=== PATIENT | female | born 1975 | race Caucasian/White ===

== ENCOUNTER 2020-07-12 13:58 | Outpatient (CLI) | payer OTHER, SELFPAY ==
--- NOTE | ~2020-07-12 | XR_ITS ---
XR lumbar spine 2-3V DATE: 07/12/2020 14:34 INDICATION: Low back pain TECHNIQUE: AP, lateral, coned lateral lumbosacral views COMPARISON: None FINDINGS: There is severe degenerative disc disease at L5-S1. Lumbar interspaces are well preserved. No fracture or bone destruction or spondylolisthesis. The lumbar pedicles are intact. The sacroiliac joints appear normal. IMPRESSION: Severe degenerative disc disease at L5-S1 Reviewed, dictated and finalized at location A.
== END 2020-07-12 13:59 | disposition home or self-care (01) ==
LOC: CHSIMG 14:00
PROVIDERS: PCP Family Medicine; Visit Provider Family Medicine
DX: M54.5 Low back pain (principal)
CPT/HCPCS: 72100

== ENCOUNTER 2020-07-16 13:02 | Outpatient (RCR) | payer OTHER, SELFPAY ==
--- NOTE | 2020-07-16 13:51 | PTOPEVAL ---
Thank you for referring Sara Rodríguez to [facility].? The patient is scheduled to be seen for therapy? __3__x/week for 12 visits. Please review, sign, date and return this plan of care LISA. I agree with and certify that the following plan of care is medically necessary. Referring Physician Date Admitting Provider: Attending Provider: Bam Canela, MD Referring Provider: *PT Outpatient Evaluation Start: 07/16/20 13:01 Freq: Status: Active Protocol: Document 07/16/20 13:01 HOMERO (Rec: 07/16/20 13:51 HOMERO [email or web address]) Therapy Assessment Status Assessment Status Assessment Status Evaluation Outpatient Past Medical History Cardiovascular History Hx Hypertension Yes Musculoskeletal History Hx Back Pain Yes Evaluation Information Problem Diagnosis low back pain Onset 06/18/20 Subjective Information Pt. reports she has had on/off Query Text:As Reported By Patient/ back pain since 2011. She Family reports no recent incident, but recent pain increase. She describes pain across the low back and to the side. She reports that she will get occassional numbness in the area of the hips. 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 She states that standing, walking and bending increase her pain. She states that pain can be most severe in the morning. Pt. reports that her goal is to be able to stand longer with less pain. Diagnostic Tests X-Rays For This Problem Yes Prior Level of Function Comments Additional Prior Level of Function Pt. reports that she was able Comments to stand for longer periods prior to the past 3 months. She notes a decrease in her activity level as of recently. Pain Assessment Pain Scale Pain Scale Used Numeric (1 - 10) Self Report Pain Assessment Lower Back Reported Pain Level 4 Pain Description Pressure Pain Frequency Chronic,Continuous Lowest Pain Intensity 4 Greatest Pain Intensity 10 Pain Aggravating Factors Bending,Exercise/Activity, Lifting,Prolonged Position, Walking,Weight Bearing/ Standing Pain Score Pain Score
--- NOTE | 2020-08-07 14:08 | PCPTNOTE ---
08/07/20-pt called and cancelled stating she is not feeling well this date- HM.
--- NOTE | 2020-08-22 13:53 | PCPTNOTE ---
Mrs. Rodríguez attended a total of 9 treatment sessions. She has failed to return to the clinic and has not contacted the clinic. Refer to her last daily note for pt. discharge status. Thank you for the referral of this pt. Ian Brown, MPT
== END 2020-08-06 14:37 | disposition home or self-care (01) ==
LOC: CHSPT 13:02
PROVIDERS: PCP Family Medicine; Visit Provider Family Medicine
DX: M54.5 Low back pain (principal)
CPT/HCPCS: 97012; 97014; 97110; 97140; 97161; G0283

== ENCOUNTER 2020-08-01 08:05 | Outpatient (CLI) | payer OTHER, SELFPAY ==
--- NOTE | ~2020-08-01 | MR_ITS ---
EXAMINATION: MR lumbar spine [facility] EXAM DATE: 08/01/2020 09:10 INDICATION: Low back pain radiating down both legs. TECHNIQUE: Multi-sequential, multiplanar MR images of the lumbar spine were obtained without contrast . Sagittal T1, T2, T2 fat saturation images. Axial T2 weighted images. There is no prior study for comparison. FINDINGS: Paraspinal soft tissue is unremarkable. There is congenitally narrow L5-S1 disc space with some superimposed disc disease. There are subacute appearing compression fractures of L5 and S1 segme nts, fracture lines visualized but with only minimal loss of height at L5 detectable. The vertebral b delvis and disc heights are otherwise well maintained. The vertebral bodies are aligned in the AP dimens ion. The conus medullaris terminates at the L1 level and has normal signal intensity and morphology . Level by level evaluation: T12-L1: Disc does not extend beyond the endplate margin. Facet arthropathy: Minimal. Neural foraminal stenosis: No stenosis. Central canal stenosis: No stenosis. L1-L2: Disc does not extend beyond the endplate margin. Facet arthropathy: Minimal. Neural foraminal stenosis: No stenosis. Central canal stenosis: No stenosis. L2-L3: Disc does not extend beyond the endplate margin. Facet arthropathy: Minimal. Neural foraminal stenosis: No stenosis. Central canal stenosis: No stenosis. L3-L4: Disc does not extend beyond the endplate margin. Facet arthropathy: Minimal. Neural foraminal stenosis: No stenosis. Central canal stenosis: No stenosis. L4-L5: There is a minimal diffuse disc bulge. Facet arthropathy: Mild. Neural foraminal stenosis: Mild right. Central canal stenosis: No stenosis. L5-S1: There is a mild diffuse disc bulge. Facet arthropathy: Mild. Neural foraminal stenosis: Mild bilateral. Central canal stenosis: No stenosis. IMPRESSION: 1. L5-S1 subacute minimal compression fractures. 2. Mild lumbar spondylosis. Reviewed, dictated and finalized at location A. [employer]
== END 2020-08-01 08:06 | disposition home or self-care (01) ==
PROVIDERS: PCP Family Medicine; Visit Provider Family Medicine
DX: M54.5 Low back pain (principal); R51.9 Headache, unspecified
CPT/HCPCS: 72148

== ENCOUNTER 2020-09-19 09:56 | Outpatient (RCR) | payer OTHER, SELFPAY ==
--- NOTE | 2020-09-19 11:26 | PTOPEVAL ---
Thank you for referring Sara Rodríguez to [facility].? The patient is scheduled to be seen for therapy? __3__x/week for 12 visits. Please review, sign, date and return this plan of care LISA. I agree with and certify that the following plan of care is medically necessary. Referring Physician Date Admitting Provider: Attending Provider: Bam Canela, Referring Provider: *PT Outpatient Evaluation Start: 09/19/20 09:49 Freq: Status: Active Protocol: Document 09/19/20 09:50 HOMERO (Rec: 09/19/20 11:25 HOMERO [email or web address]) Therapy Assessment Status Assessment Status Assessment Status Evaluation Outpatient Past Medical History Cardiovascular History Hx Hypertension Yes Musculoskeletal History Hx Back Pain Yes Evaluation Information Problem Diagnosis low back pain Onset 06/19/20 Subjective Information Pt. reports she was Query Text:As Reported By Patient/ participating in therapy 1-2 Family months ago. She reports she had to undergo wrist surgery to remove a cyst and was unable to return. She report she has recovered from surgery , but is still having back pain. 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 She states that pain is worst with standing one position, bending and twisting. She reports that her goal is to decrease her low back pain with work related duties. Prior Level of Function Comments Additional Prior Level of Function Pt. 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 She states that she continues to work but has severe pain by the end of the day. She reports that she is not very active at home due to her pain . Pain Assessment Timing of Pain Assessment Timing of Pain Assessment Pre-Treatment Pain Scale Pain Scale Used Numeric (1 - 10) Self Report Pain Assessment Lower Back Reported Pain Level 4 Pain Description Aching Pain Frequency Continuous Lowest Pain Intensity 4 Greatest Pain Intensity 8 Pain Aggravating Factors Bending,Exercis
== END 2020-10-22 14:36 | disposition home or self-care (01) ==
LOC: CHSPT 09:56
PROVIDERS: Visit Provider Family Medicine
DX: M54.5 Low back pain (principal)
CPT/HCPCS: 97014; 97110; 97140; 97161; G0283

== ENCOUNTER 2020-10-17 11:00 | Outpatient (CLI) | payer OTHER, SELFPAY ==
--- NOTE | ~2020-10-17 | MM_ITS ---
EXAMINATION: MM screening [facility] HISTORY: Baseline screening mammogram TECHNIQUE: Craniocaudal and mediolateral oblique 3-D tomosynthesis images were obtained and synthetic 2-D images were generated. CAD analysis was submitted and interpreted. COMPARISON: None, baseline BREAST PARENCHYMAL COMPOSITION: The breasts are heterogeneously dense, which may obscure small masses . FINDINGS: RIGHT BREAST: An asymmetry is present in the middle third of the lower breast on the mediolateral obl ique view. LEFT BREAST: There is a possible mass in the middle third of the upper outer quadrant of the breast. IMPRESSION: 1. Bilateral breast findings as described above. 2. Additional mammographic views and possible breast ultrasound are recommended to evaluate for malig matheus and establish a baseline given that this is the first mammographic examination. BI-RADS Category 0: Incomplete: Needs additional imaging evaluation. Reviewed, dictated and finalized at location A. DER LABORER IMPRESSION: 1. Bilateral breast findings as described above. 2. Additional mammographic views and possible breast ultrasound are recommended to evaluate for malignancy and establish a baseline given that this is the fir st mammographic examination. BI-RADS Category 0: Incomplete: Needs additional imaging evaluation.
--- NOTE | ~2020-10-17 | DEXA_ITS ---
Bone Density Report Name: Sara Rodríguez Age: 45 Sex: Female Ethnicity: White Date of : 1975 Indication: parental hip fracture; prior fracture; Referring Provider: RolaBam Study: Bone densitometry was performed. Exam Date: October 17, 2020 Accession number: [id number] Bone Density: Region BMD T-score Z-score Classification AP Spine(L1-L4) 0.845 -1.8 -1.4 Osteopenia Femoral Neck (Left) 0.585 -2.4 -2.0 Osteopenia Total Hip (Left) 0.749 -1.6 -1.3 Osteopenia Femoral Neck (Right) 0.615 -2.1 -1.7 Osteopenia Total Hip (Right) 0.801 -1.2 -0.9 Osteopenia Femoral Neck Mean 0.600 -2.2 -1.9 Osteopenia Total Hip Mean 0.775 -1.4 -1.1 Osteopenia World Health Organization criteria for BMD impression classify patients as: Normal (T-score at or above -1.0), Osteopenia (T-score between -1.0 and -2.5), or Osteoporosis (T-score at or below -2.5). 10-year Fracture Risk: FRAX not reported because: Premenopausal woman Prior hip or vertebral fracture Clinical Information Provided by Patient: Have had a previous hip or vertebral fracture Has had a low trauma fracture Parent has had a hip fracture Smokes Patient maximum height was 64 No regular weight bearing exercise Does not regularly consume dairy products Drinks caffeinated beverages Onset of menses at age 13 Premenopausal Number of children 0 Impression: The patient's bone mass is below expected range for age, gender and ethnicity based on the Left Femoral Neck Z-score. The patient has risk factors, including: parental hip fracture, smoking, previous fracture. Discussion: BONE DENSITY IS ABNORMALLY LOW FOR AGE, SEX, AND RACE. HISTORY OF FRACTURE. This patient's lowest Z-score is -2.0 or more below average for age, sex, and race at one or more sites. This may be due to low peak bone mass or to excessive bone loss. There may be some underlying disease or condition contributing to reduced bone mass. Further evaluation should be strongly considered, especially given the patient's history of fracture at a young age. Although there is a predictable association between low bone mass and the risk of osteoporotic fractures in untreated postmenopausal women, there are no data relating bone density and fracture risk in younger women. The ISCD position is that the diagnosis of ?low bone mass? or ?osteoporosis? should not be made on densitometric criteria alone. WHO criteria only apply to postmenopausal women. Although pharmacologic therapy is sometimes indicated for patients with Z-scores in this range, there is little information available. A decision to treat should be based on a thorough consideration of benefits and risks. The patient should follow a healthful lifestyle (good nutrition with adequate calcium and vitamin D, and appropriate weig
== END 2020-10-17 11:01 | disposition home or self-care (01) ==
LOC: CHSIMG 11:02
PROVIDERS: PCP Family Medicine; Visit Provider Family Medicine
DX: Z12.31 Encounter for screening mammogram for malignant neoplasm of breast (principal); M81.0 Age-related osteoporosis without current pathological fracture
CPT/HCPCS: 77063; 77067; 77080

== ENCOUNTER 2020-11-09 09:58 | Outpatient (CLI) | payer OTHER, SELFPAY ==
--- NOTE | ~2020-11-09 | MMUS_ITS ---
EXAMINATION: MM diagnostic [facility], US breast LT limited HISTORY: Abnormal baseline screening mammogram TECHNIQUE: Additional 3-D tomosynthesis images of the breasts were performed and synthetic 2-D images were generated. CAD analysis was submitted and interpreted. High resolution limited left breast ultr asound was performed. COMPARISON: 10/17/2020 FINDINGS: MAMMOGRAPHIC FINDINGS: Left breast: There is a persistent focal asymmetry in the posterior third of the upper outer quadrant of the breast. No suspicious calcification or architectural distortion is identified. Right breast: No persistent asymmetry is identified with spot compression of the right breast. ULTRASOUND: There is no evidence of focal abnormal solid or cystic lesion in the vicinity of the of the left theron st. There are multiple cysts in the upper outer quadrant and subareolar aspect of the breasts. The la rgest measures 8 mm. IMPRESSION: 1. Probably benign focal asymmetry of the left breast. 2. Recommend 6 month follow-up left diagnostic mammogram and possible ultrasound. BI-RADS category 3, probably benign findings. Reviewed, dictated and finalized at location A. [place] IMPRESSION: 1. Probably benign focal asymmetry of the left breast. 2. Recommend 6 month follow-up left diagnostic mammogram and possible ultrasoun d. BI-RADS category 3, probably benign findings.
== END 2020-11-09 09:59 | disposition home or self-care (01) ==
LOC: CHSIMG 09:59
PROVIDERS: PCP Family Medicine; Visit Provider Family Medicine
DX: R92.8 Other abnormal and inconclusive findings on diagnostic imaging of breast (principal)
CPT/HCPCS: 76642; 77062; 77066; G0279

== ENCOUNTER 2020-11-26 17:39 | Outpatient (CLI) | payer OTHER, SELFPAY ==
[2020-11-26 18:29] LABS: SARS-CoV-2 Ag Negative (Negative)
== END 2020-11-26 17:40 | disposition home or self-care (01) ==
LOC: CHSLAB 17:44
PROVIDERS: PCP Family Medicine; Visit Provider Family Medicine
DX: J02.9 Acute pharyngitis, unspecified (principal); Z20.822 Contact with and (suspected) exposure to COVID-19
CPT/HCPCS: 87081; 87426; 87880; C9803

== ENCOUNTER 2022-01-28 21:38 | Emergency (ER) | payer OTHER, SELFPAY ==
[2022-01-28 21:49] VITALS: BP 183/103; PULSE 98; RESP 22; TEMP 36.6; O2SAT 98
--- NOTE | 2022-01-28 21:54 | ED.DENTAL ---
HPI - Dental/Oral General Chief complaint: Unspecified Stated complaint: filling fell out of tooth Time Seen by Provider: 01/28/22 21:53 Source: patient and RN notes reviewed Mode of arrival: ambulatory Limitations: no limitations History of Present Illness HPI Narrative: patient states a filling fell out about 2 weeks ago and then started hurting tonight. Complaint: tooth pain Location: Tooth # (30) Onset (ago): minute(s) (30) Duration: constant Severity: moderate Relieving factors: nothing Exacerbating factors: chewing and cold Treatment prior to arrival: none Related Data Home Medications Medication Instructions Recorded Confirmed gabapentin 400 mg PO TID 01/28/22 01/28/22 Allergies Allergy/AdvReac Type Severity Reaction Status Date / Time No Known Allergies Allergy Verified 01/28/22 21:52 Review of Systems Review of Systems: All systems reviewed & are unremarkable except as noted in HPI and below PMFSH Past Medical History Medical History (Updated 01/29/22 @ 00:00 by Edmond Narayan) Chronic back pain Surgical History Surgical History (Updated 01/28/22 @ 22:05 by Donny Phan MD) No pertinent past surgical history Exam Const: General: healthy appearing, no acute distress and alert Nutritional Appearance: well nourished Orientation/consciousness: patient oriented x3 Other: Female tech in room during examination. HENMT: Head: normal to inspection Ears: external ears normal Face and sinus: normal facial exam Mouth: Yes moist mucous membranes Teeth and gingiva: caries and poor dentition Teeth image: 1. Dental filling absent with broken tooth addition tender to palpation no fluctuation no gum swelling. 2. Dental filling absent with broken tooth addition tender to palpation no fluctuation no gum swelling. Throat: posterior oropharynx normal Eyes: Conjunctivae: conjunctivae normal Pupils: Equal, round and reactive pupils present EOM: EOMs intact bilaterally Neck: Neck: normal visual inspection and no lymphadenopathy Resp: Effort & Inspection: normal respiratory effort Auscultation: clear to auscultation bilaterally Cardio: Rate: regular rate Rhythm: regular rhythm GI: GI Palp: Yes Soft to palpation and No Tenderness to palpation present (GI) Auscultation: normal bowel sounds Back/Spine/Pelvis: Cervical Spine: cervical ROM normal Thoracic/Lumbar Spine: thoraco-lumbar ROM normal Skin: General skin exam: normal color Rashes: no rashes Neuro: General: patient oriented x3, moves all extremities, no focal motor deficits and CN's II-XI intact bilaterally Speech: normal speech Gait exam (Neuro): Normal gait present Extrem: General: normal to inspection and no clubbing, cyanosis or edema Psych: Appearance: grossly normal and well kempt Mental Status: mental status grossly normal Affect: normal affect Attitude: cooperative Thought content: Yes Normal thought content present Course Vital Signs Vital signs: Vital Signs Temperature 36.6 C 01/28/22 21:49 Pulse Rate 98 01/28/22 21:49 Respiratory Rate 22 H 01/28/22 21:49 Blood Pressure 183/103 H 01/28/22 21:49 Pulse Oximetry 98 01/28/22 21:49 Temperature 36.6 C 01/28/22 21:49 Pulse Rate 90 01/28/22 22:12 Respiratory Rate 18 01/28/22 22:12 Blood Pressure 183/99 H 01/28/22 22:12 Pulse Oximetry 97 01/28/22 22:12 Discharge Plan Discharge Clinical Impression: Pain due to dental caries Patient Disposition: Home, Self-Care Condition: Stable Instructions: Toothache (ED) Additional Instructions: see a dentist in the next 5-7 days. Get some [id number] dental wax and use that to cover the exposed tooth. Prescriptions: New tramadol 50 mg tablet 50 mg PO Q6H PRN (Reason: pain) Qty: 10 RF: 0 nabumetone 750 mg tablet 750 mg PO BID 10 Days Qty: 20 RF: 0 No Action gabapentin 400 mg capsule 400 mg PO TID RF: 0 Follow-up/Referrals: RolaSteffanie
[2022-01-28] MEDS: KETOROLAC (*BKC) 60 MG/2 ML VIAL IM (22:04)
[2022-01-28 22:12] VITALS: BP 183/99; PULSE 90; RESP 18; O2SAT 97
== END 2022-01-28 22:13 | disposition home or self-care (01) ==
PROVIDERS: Emergency Provider Emergency Medicine; PCP Family Medicine
DX: K08.89 Other specified disorders of teeth and supporting structures (principal); K02.9 Dental caries, unspecified
CPT/HCPCS: 96372; 99283; J1885

== ENCOUNTER 2022-02-06 22:10 | Emergency (ER) | payer OTHER, SELFPAY ==
[2022-02-06 22:14] VITALS: BP 157/105; PULSE 99; RESP 18; TEMP 36.2; O2SAT 98
--- NOTE | 2022-02-06 22:50 | ED.DENTAL ---
HPI - Dental/Oral General Chief complaint: Dental/Oral Stated complaint: tooth pain Source: patient Mode of arrival: ambulatory Limitations: no limitations History of Present Illness HPI Narrative: this is a 46-year-old female that presents with dental pain was started on antibiotics by her dentist and advised to continue her current antibiotics, does have severe tooth decay right lower premolar area of surrounding gum inflammation with no fever chills no nausea vomiting no shortness of breath. MD Complaint: tooth pain Teeth map: 1. Tooth decay with surrounding gum inflammation Onset (ago): day(s) Duration: constant Severity: moderate Severity scale (1-10): 6 Relieving factors: NSAIDs Exacerbating factors: chewing and cold Context: history of dental caries Associated symptoms: gum swelling Treatment prior to arrival: oral analgesic Related Data Home Medications Medication Instructions Recorded Confirmed gabapentin 400 mg capsule 400 mg PO TID 01/28/22 02/06/22 Allergies Allergy/AdvReac Type Severity Reaction Status Date / Time No Known Allergies Allergy Verified 02/06/22 22:39 Review of Systems Review of Systems: All systems reviewed & are unremarkable except as noted in HPI and below PMFSH Past Medical History Medical History Chronic back pain Surgical History Surgical History No pertinent past surgical history Exam Const: General: healthy appearing and no acute distress Nutritional Appearance: well nourished Limitations: no limitations HENMT: Head: normal to inspection Ears: external ears normal Other: Severe tooth decay with surrounding gum inflammation right lower premolar area Eyes: Conjunctivae: conjunctivae normal Pupils: Equal, round and reactive pupils present EOM: EOMs intact bilaterally Neck: Neck: normal visual inspection and no lymphadenopathy Chest: Chest palpation & inspection: normal inspection of the chest Resp: Effort & Inspection: normal respiratory effort Auscultation: clear to auscultation bilaterally Cardio: Rate: regular rate Rhythm: regular rhythm GI: Auscultation: normal bowel sounds Skin: General skin exam: normal color Wounds: no wounds Neuro: General: patient oriented x3, moves all extremities, no meningeal signs and no focal motor deficits Extrem: General: normal to inspection, no clubbing, cyanosis or edema and no pedal edema Psych: Mental Status: mental status grossly normal Course Course Emergency Course: patient received a dose of 60mg IM Toradol is currently taking antibiotics per her dentist, advised patient to continue current antibiotics. Critical Care Time Critical Care Time Critical Care Time: No Discharge Plan Discharge Clinical Impression: Toothache, Dental abscess, Dental caries Patient Disposition: Home, Self-Care Condition: Stable Instructions: Antibiotic Form, Dental Abscess (ED) Additional Instructions: Take medicine as prescribed and keep regular follow-up appointment with her your dentist. Prescriptions: New tramadol [Ultram] 50 mg tablet 50 mg PO Q6H PRN (Reason: pain) Qty: 20 0RF No Action gabapentin 400 mg capsule 400 mg PO TID Follow-up/Referrals: Rola,MD Bam [Primary Care Provider] - Stand Alone Forms: Work/School Release IP Time of Disposition: 22:55
[2022-02-06] MEDS: KETOROLAC (*BKC) 60 MG/2 ML VIAL IM (22:55)
[2022-02-06 23:19] VITALS: BP 135/90; PULSE 93; RESP 16; O2SAT 100
== END 2022-02-06 23:22 | disposition home or self-care (01) ==
PROVIDERS: Emergency Provider Emergency Medicine; PCP Family Medicine
DX: K02.9 Dental caries, unspecified (principal); K04.7 Periapical abscess without sinus; G89.29 Other chronic pain; M54.9 Dorsalgia, unspecified
CPT/HCPCS: 96372; 99283; J1885

== ENCOUNTER 2022-02-10 20:36 | Emergency (ER) | payer OTHER, SELFPAY ==
[2022-02-10 20:52] VITALS: BP 174/70; PULSE 108; RESP 20; TEMP 36.2; O2SAT 98
--- NOTE | 2022-02-10 20:58 | ED.GENADULT ---
HPI - General Adult General Chief complaint: Dental/Oral Stated complaint: toothache History of Present Illness HPI narrative: Sara is a 46F with a PMH of dental decay that presented to the ED with continued tooth pain in her back right molar. OTC meds and Tramadol have not helped. She does have surgery scheduled. Toradol does help. She has no issues breathing, or swallowing. No fevers, chills, N/V. Related Data Home Medications Medication Instructions Recorded Confirmed gabapentin 400 mg capsule 400 mg PO TID 01/28/22 02/10/22 Allergies Allergy/AdvReac Type Severity Reaction Status Date / Time No Known Allergies Allergy Verified 02/06/22 22:39 Review of Systems Review of Systems: All systems reviewed & are unremarkable except as noted in HPI and below PMFSH Past Medical History Medical History Chronic back pain Surgical History Surgical History No pertinent past surgical history Exam Const: General: healthy appearing and no acute distress Nutritional Appearance: well nourished Limitations: no limitations HENMT: Head: normal to inspection Ears: external ears normal Other: Severe tooth decay with surrounding gum inflammation right lower premolar area Eyes: Conjunctivae: conjunctivae normal Pupils: Equal, round and reactive pupils present EOM: EOMs intact bilaterally Neck: Neck: normal visual inspection and no lymphadenopathy Chest: Chest palpation & inspection: normal inspection of the chest Resp: Effort & Inspection: normal respiratory effort Cardio: Rate: regular rate Skin: General skin exam: normal color Wounds: no wounds Neuro: General: patient oriented x3, moves all extremities, no meningeal signs and no focal motor deficits Extrem: General: normal to inspection, no clubbing, cyanosis or edema and no pedal edema Psych: Mental Status: mental status grossly normal Course Vital Signs Vital signs: Vital Signs Temperature 97.2 F L 02/10/22 20:52 Pulse Rate 108 H 02/10/22 20:52 Respiratory Rate 20 02/10/22 20:52 Blood Pressure 174/70 H 02/10/22 20:52 Pulse Oximetry 98 02/10/22 20:52 Oxygen Delivery Room Air 02/10/22 20:52 Temperature 98 F 02/10/22 21:21 Pulse Rate 100 02/10/22 21:21 Respiratory Rate 18 02/10/22 21:21 Blood Pressure 144/75 H 02/10/22 21:21 Pulse Oximetry 98 02/10/22 21:21 Oxygen Delivery Room Air 02/10/22 21:21 Medical Decision Making Vital Signs Vital Signs: Vital Signs Temperature 97.2 F L 02/10/22 20:52 Pulse Rate 108 H 02/10/22 20:52 Respiratory Rate 20 02/10/22 20:52 Blood Pressure 174/70 H 02/10/22 20:52 Pulse Oximetry 98 02/10/22 20:52 Oxygen Delivery Room Air 02/10/22 20:52 Temperature 98 F 02/10/22 21:21 Pulse Rate 100 02/10/22 21:21 Respiratory Rate 18 02/10/22 21:21 Blood Pressure 144/75 H 02/10/22 21:21 Pulse Oximetry 98 02/10/22 21:21 Oxygen Delivery Room Air 02/10/22 21:21 Discharge Plan Discharge Clinical Impression: Dental abscess Patient Disposition: Home, Self-Care Condition: Stable Instructions: Dental Abscess (ED) Prescriptions: New clindamycin HCl 300 mg capsule 300 mg PO Q6H 5 Days Qty: 20 0RF No Action gabapentin 400 mg capsule 400 mg PO TID tramadol [Ultram] 50 mg tablet 50 mg PO Q6H PRN (Reason: pain) Qty: 20 0RF Follow-up/Referrals: Rola,MD Bam [Primary Care Provider] - Stand Alone Forms: Work/School Release IP
[2022-02-10] MEDS: KETOROLAC 30 MG/ML VIAL (*BKC) IM (21:05)
[2022-02-10] MEDS: CLINDAMYCIN HCL 150 MG CAP 450 MG PO (21:06)
[2022-02-10 21:21] VITALS: BP 144/75; PULSE 100; RESP 18; TEMP 36.6; O2SAT 98
== END 2022-02-10 21:22 | disposition home or self-care (01) ==
PROVIDERS: Emergency Provider Family Medicine; PCP Family Medicine
DX: K04.7 Periapical abscess without sinus (principal)
CPT/HCPCS: 96372; 99283; A9270; J1885

== ENCOUNTER 2022-03-16 13:20 | Emergency (ER) | payer OTHER, SELFPAY ==
[2022-03-16 13:25] VITALS: BP 121/72; PULSE 108; RESP 20; TEMP 36.8; O2SAT 98
[2022-03-16] MEDS: KETOROLAC 30 MG/ML VIAL (*BKC) IM (13:54)
[2022-03-16] MEDS: ONDANSETRON HCL ODT 4 MG TABLET PO (13:54)
--- NOTE | 2022-03-16 14:05 | ED.GENADULT ---
HPI - General Adult General Chief complaint: Dental/Oral Stated complaint: infectionin gums had surgery Mon and headache History of Present Illness HPI narrative: Sara is a 46F with a PMH of poor dentition and chronic back pain that presented to the ED with dental pain. She had 3 teeth pulled 6 days ago then started having pain. She saw her dentist that put her on Augmentin. However, this made her nauseated so she saw her PCP that put her on clindamycin. However, after switching to this the gums got worse so she went back to the Augmentin. She states that her gums are on fire and she cannot take it. There have been no fevers, chills, dysphagia or SOB. She is still able to drink plenty of fluids. She has hydrocodone but has not been taking them d/t nausea. She has been taking ibuprofen as well. Related Data Home Medications Medication Instructions Recorded Confirmed gabapentin 400 mg capsule 400 mg PO TID 01/28/22 03/16/22 Allergies Allergy/AdvReac Type Severity Reaction Status Date / Time No Known Allergies Allergy Verified 03/16/22 13:33 Review of Systems Constitutional: Constitutional: Reports no additional constitutional complaints Eyes: Eyes: Reports no additional eye complaints ENT: Reports system reviewed and no additional complaints, except as documented Cardiovascular: Cardiovascular: Reports no additional cardiovascular complaints Respiratory: Respiratory: Reports no additional respiratory complaints Gastrointestinal: Gastrointestinal: Reports no additional gastrointestinal complaints Genitourinary: Genitourinary: Reports no additional female genitourinary complaints Musculoskeletal: Musculoskeletal: Reports no additional musculoskeletal complaints Integumentary/Breasts: Skin/Breast: Reports system reviewed and no additional complaints, except as docu Neurologic: Reports system reviewed and no additional complaints, except as documented Psychiatric: Psychiatric: Reports no additional psychiatric complaints Endocrine: Endocrine: Reports no additional endocrine complaints Hematologic/Lymphatic: Hematologic/Lymphatic: Reports no additional hematologic/lymphatic complaints Allergic/Immunologic: Allergic/Immunologic: Reports no additional allergic/immunologic complaints PMFSH Past Medical History Medical History Chronic back pain Surgical History Surgical History No pertinent past surgical history Exam Const: General: healthy appearing and no acute distress Nutritional Appearance: well nourished Orientation/consciousness: patient oriented x3 HENMT: Head: normal to inspection Ears: external ears normal General nose exam: Normal external nose present Face and sinus: normal facial exam Other: Right lower posteror gum was erythematous, TTP and had purulent drainage Eyes: Conjunctivae: conjunctivae normal Pupils: Equal, round and reactive pupils present Chest: Chest palpation & inspection: normal inspection of the chest Resp: Effort & Inspection: normal respiratory effort and not labored Auscultation: clear to auscultation bilaterally Cardio: Rate: tachycardic Rhythm: regular rhythm Heart sounds: no murmurs Skin: General skin exam: normal color Neuro: General: patient oriented x3 and moves all extremities Cranial nerves: Yes Nystagmus not present Extrem: Other: no deformity Psych: Mental Status: mental status grossly normal Course Vital Signs Vital signs: Vital Signs Temperature 98.2 F 03/16/22 13:25 Pulse Rate 108 H 03/16/22 13:25 Respiratory Rate 20 03/16/22 13:25 Blood Pressure 121/72 03/16/22 13:25 Pulse Oximetry 98 03/16/22 13:25 Oxygen Delivery Room Air 03/16/22 13:25 Temperature 98.2 F 03/16/22 13:25 Pulse Rate 108 H 03/16/22 13:25 Respiratory Rate 20 03/16/22 13:25 Blood Pressure 121/72 03/16/22 13:25 Pulse Ox
[2022-03-16 14:12] VITALS: BP 135/89; PULSE 100; RESP 16; O2SAT 98
--- NOTE | 2022-03-16 15:56 | PC.NURSE ---
Addendum entered by Marlon Yeung RN 03/16/22 15:57: PT RX CALLED TO [facility] [id number] SPOKE WITH DAIJA Original Note: RX SENT ELECTRONICALLY TO [facility] REPORTED FROM [facility] OF CHOICE. [facility] IS CLOSED TODAY P
== END 2022-03-16 14:20 | disposition home or self-care (01) ==
PROVIDERS: Emergency Provider Family Medicine; PCP Family Medicine
DX: K04.7 Periapical abscess without sinus (principal)
CPT/HCPCS: 96372; 99283; A9270; J1885

== ENCOUNTER 2023-07-22 13:42 | Outpatient (CLI) | payer OTHER, SELFPAY ==
--- NOTE | ~2023-07-22 | XR_ITS ---
EXAMINATION: XR ribs BI 3V w CXR 2V DATE: 07/22/2023 14:05 INDICATION: Right chest pain. Shortness of breath. TECHNIQUE: Frontal and lateral views of the chest and 2 views on 3 radiographs of the right ribs were obtained. COMPARISON: Chest single view 11/06/2021 FINDINGS: CHEST TWO VIEWS: There is no pneumonia, pleural effusion, or pneumothorax. The heart size is normal. RIGHT RIBS: There is no rib fracture. IMPRESSION: 1. No rib fracture. Reviewed, dictated and finalized at location E. [employer] IMPRESSION: 1. No rib fracture.
== END 2023-07-22 13:43 | disposition home or self-care (01) ==
PROVIDERS: PCP Family Medicine; Visit Provider Family Medicine
DX: R07.81 Pleurodynia (principal)
CPT/HCPCS: 71046; 71110